=== PATIENT | male | born 2000 | race African-American/Black ===

== ENCOUNTER 2022-03-28 15:11 | Emergency (ER) | payer SELFPAY ==
--- OUTSIDE RECORDS SUMMARY | 2022-03-28 15:15 | XMS REPORT | Continuity of Care Document ---
:2000 Author Organization [facility] t Address [address] [place] [address] Care Team Providers Name Role Phone WALT DIAZ Attending Clinician Unavailable Problems This patient has no known problems. Allergies, Adverse Reactions, Alerts This patient has no known allergies or adverse reactions. Medications This patient has no known medications. Procedures This patient has no known procedures. Encounters Start End Encounter Admission Attending Care Care Encounter Source Date/Time Date/Time Type Type Clinicians Facility Department ID 2021-11-11 2021-11-11 Emergency E [facility] D[facility] [id number] 14:47:00 17:14:00 WALT Results This patient has no known results.
[2022-03-28 16:17] LABS: Urine Blood Negative (Negative); Urine Glucose Negative (Negative); Urine Protein 2+ (Negative); Urine Specific Gravity 1.025 (1.005-1.030)
[2022-03-28 16:31] LABS: Urine Bacteria <20 /HPF (<20); Urine Mucus 4+ /HPF (None Seen); Urine RBC 21-50 /HPF (None Seen)
[2022-03-28] MEDS ORDERED: AZITHROMYCIN 250 MG TAB ONE (16:35)
[2022-03-28] MEDS ORDERED: CEFTRIAXONE 250 MG/VIAL ONE (16:35)
--- NOTE | 2022-03-28 16:47 | ER ---
Nurse's Notes [facility] Name: Morgan Whipple Jr Age: 21 yrs Sex: Male : 2000 Arrival Date: 03/28/2022 Time: 15:16 Bed Treatment Private MD: Diagnosis: Unspecified sexually transmitted disease Presentation: 03/28 15:36 Chief complaint: Patient states: started having yellow discharge from penis yesterday jh5 and burning with urination. Coronavirus screen: Vaccine status: Patient reports being unvaccinated. Client denies travel out of the [place] in the last 14 days. Ebola Screen: Patient negative for fever greater than or equal to 101.5 degrees Fahrenheit, and additional compatible Ebola Virus Disease symptoms Patient denies exposure to infectious person. Patient denies travel to an Ebola-affected area in the 21 days before illness onset. Initial Sepsis Screen: Does the patient meet any 2 criteria? No. Patient's initial sepsis screen is negative. Does the patient have a suspected source of infection? No. Patient's initial sepsis screen is negative. Risk Assessment: Do you want to hurt yourself or someone else? Patient reports no desire to harm self or others. Onset of symptoms was March 27, 2022. 15:36 Method Of Arrival: Ambulatory [facility] 15:36 Acuity: DARY 3 jh5 Triage Assessment: 15:39 General: Appears in no apparent distress. uncomfortable, slender, well groomed, well jh5 developed, Behavior is calm, cooperative, appropriate for age, anxious. Pain: Denies pain. Historical: - Allergies: 15:39 No Known Allergies; 5 - Home Meds: 15:39 None [Active]; jh5 - PMHx: 15:39 None; jh5 - PSHx: 15:39 None; 5 - Immunization history:: Adult Immunizations up to date. - Social history:: Smoking status: Reported history of juuling and/or vaping. Screenin:07 Abuse screen: Denies threats or abuse. Nutritional screening: No deficits noted. em6 Tuberculosis screening: No symptoms or risk factors identified. Fall Risk Total Mahmood Fall Scale indicates No Risk (0-24 pts). Assessment: 15:50 General: Appears in no apparent distress. Behavior is cooperative. Pain: Denies pain. em6 Neuro: Level of Consciousness is awake, alert, obeys commands, Oriented to person, place, time, situation. Cardiovascular: Patient's skin is warm and dry. Respiratory: Airway is patent Respiratory effort is even, unlabored, Respiratory pattern is regular, symmetrical. GI: No signs and/or symptoms were reported involving the gastrointestinal system. : Reports burning with urination, discharge, white, urinary frequency. EENT: No signs and/or symptoms were reported regarding the EENT system. Derm: No signs and/or symptoms reported regarding the dermatologic system. Musculoskeletal: Circulation, motion, and sensation intact. Range of motion: intact in all extremities. 16:50 Reassessment: No changes from previously documented assessment. Patient and/or family em6 updated on plan of care and expected duration. Pain level reassessed. Patient is alert, oriented x 3, equal unlabored respirations, skin warm/dry/pink. Vital Signs: 15:36 BP 139 / 89; Pulse 113; Resp 16; Temp 98.8; Pulse Ox 100% ; Weight 85.28 kg; Height 5 [facility] ft. 11 in. (180.34 cm); Pain 0/10; 17:17 BP 132 / 84; Pulse 100; Resp 18; Pulse Ox 100% on R/A; em6 15:36 Body Mass Index 26.22 (85.28 kg, 180.34 cm) [facility] ED Course: 15:16 Patient arrived in ED. rg4 15:19 Magno Juarez PA is PHCP. cp 15:19 Waldo Tijerina MD is Attending Physician. cp 15:39 Triage completed. [facility] 15:39 Arm band placed on right wrist. [facility] 16:03 Breanne Granger, BRONWYN is Primary Nurse. em6 16:07 Call light in reach. em6 16:18 Urine Microscopic Only Sent. em6 16:18 Urine Culture Sent. em6 17:17 No provider procedures requiring assistance completed. Patient did not have IV access em6 during this emergency room visit. Administered Medications: 16:45 Drug: Zithromax (azithromycin) 1 grams Route: PO; em6 17:12 Follow up: Response: No adverse reaction em6 16:45 Drug: Rocephin (cefTRIAXone) 250 mg Route: IM; Site: right deltoid; em6 17:12 Follow up: Response: No adverse reaction em6 Medication: 17:18 VIS not applicable for this client. em6 Outcome: 16:46 Discharge ordered by . cp 17:17 Discharged to home ambulatory. em6 17:17 Condition: stable 17:17 Discharge instructions given to patient, Instructed on discharge instructions, follow up and referral plans. medication usage, Demonstrated understanding of instructions, follow-up care, medications, Prescriptions given X 1. 17:18 Patient left the ED. em6 Signatures: Magno Juarez PA PA cp Garcia, Rubi rg4 Kiki Santamaria RN RN 5 Breanne Granger RN RN em6 Corrections: (The following items were deleted from the chart) 18:40 15:50 GI: em6 em6
--- NOTE | 2022-03-28 16:47 | EDPHYS ---
Physician Documentation [facility] Name: Morgan Whipple Jr Age: 21 yrs Sex: Male : 2000 Arrival Date: 03/28/2022 Time: 15:16 Bed Treatment Private MD: ED Physician aWldo Tijerina HPI: 03/28 16:15 This 21 yrs old Black Male presents to ER via Ambulatory with complaints of Penile cp Discharge, Burning With Urination. 16:15 The patient presents with urinary symptoms, dysuria, penile discharge. Onset: The cp symptoms/episode began/occurred yesterday. Associated signs and symptoms: The patient has no apparent associated signs or symptoms. Patient reports being sexually active and c/o painful urination and yellow colored penile discharge since yesterday. Denies testicular pain, denies abdominal pain, denies rash. Historical: - Allergies: 15:39 No Known Allergies; [facility] - Home Meds: 15:39 None [Active]; [facility] - PMHx: 15:39 None; [facility] - PSHx: 15:39 None; [facility] - Immunization history:: Adult Immunizations up to date. - Social history:: Smoking status: Reported history of juuling and/or vaping. ROS: 16:20 Constitutional: Negative for body aches, chills, fever, poor PO intake. cp 16:20 Respiratory: Negative for cough, shortness of breath, wheezing. cp 16:20 Abdomen/GI: Negative for abdominal pain, nausea, vomiting, and diarrhea. 16:20 Back: Negative for pain at rest, pain with movement. 16:20 : Positive for burning with urination, penile discharge, Negative for hematuria, testicular pain 16:20 Skin: Negative for rash. 16:20 Neuro: Negative for altered mental status, weakness. 16:20 All other systems are negative. Exam: 16:23 Constitutional: The patient appears in no acute distress, alert, awake, comfortable, cp non-toxic, well developed, well nourished. 16:23 Head/Face: Normocephalic, atraumatic. cp 16:23 Eyes: Periorbital structures: appear normal, Conjunctiva: normal, no exudate, no injection, Sclera: no appreciated abnormality, Lids and lashes: appear normal, bilaterally. 16:23 ENT: External ear(s): are unremarkable, Nose: is normal, Posterior pharynx: Airway: no evidence of obstruction, patent. 16:23 Chest/axilla: Inspection: normal. 16:23 Cardiovascular: Rate: tachycardic, Rhythm: regular. 16:23 Respiratory: the patient does not display signs of respiratory distress, Respirations: normal, no use of accessory muscles, no retractions, labored breathing, is not present, Breath sounds: are clear throughout, no decreased breath sounds. 16:23 Abdomen/GI: Exam negative for discomfort, distension, guarding, Inspection: abdomen appears normal. 16:23 Skin: no rash present. Vital Signs: 15:36 BP 139 / 89; Pulse 113; Resp 16; Temp 98.8; Pulse Ox 100% ; Weight 85.28 kg; Height 5 jh5 ft. 11 in. (180.34 cm); Pain 0/10; 17:17 BP 132 / 84; Pulse 100; Resp 18; Pulse Ox 100% on R/A; em6 15:36 Body Mass Index 26.22 (85.28 kg, 180.34 cm) jh5 MDM: 15:58 Patient medically screened. cp 16:15 Differential diagnosis: UTI, prostatitis, urethritis, std. cp 16:45 Data reviewed: vital signs, nurses notes, lab test result(s), urinalysis, hematuria. cp 16:46 Counseling: I had a detailed discussion with the patient and/or guardian regarding: the cp historical points, exam findings, and any diagnostic results supporting the discharge/admit diagnosis, lab results, to return to the emergency department if symptoms worsen or persist or if there are any questions or concerns that arise at home. 03/28 16:07 Order name: Urine Culture cp 03/28 16:07 Order name: Urine Microscopic Only; Complete Time: 16:43 cp 03/28 16:44 Interpretation: Normal except: UWBC >50; URBC 21-50; MUCUS 4+; HYAL 5-10. cp 03/28 16:17 Order name: Urine Dipstick-Ancillary; Complete Time: 16:19 EDMS 03/28 16:44 Interpretation: Normal except: UKET 4+; UPROT 2+; UESTR Trace. cp 03/28 16:07 Order name: Urine Dipstick-Ancillary (obtain specimen); Complete Time: 16:18 cp Administered Medications: 16:45 Drug: Zithromax (azithromycin) 1 grams Route: PO; em6 17:12 Follow up: Response: No adverse reaction em6 16:45 Drug: Rocephin (cefTRIAXone) 250 mg Route: IM; Site: right deltoid; em6 17:12 Follow up: Response: No adverse reaction em6 Disposition Summary: 03/28/22 16:46 Discharge Ordered Location: Home cp Problem: new cp Symptoms: have improved cp Condition: Stable cp Diagnosis - Unspecified sexually transmitted disease cp Followup: cp - With: Private Physician - When: 2 - 3 days - Reason: Recheck today's complaints Discharge Instructions: - Discharge Summary Sheet cp - Chlamydia, Male cp - Gonorrhea cp - Preventing Sexually Transmitted Infections, Adult cp Forms: - Medication Reconciliation Form cp - Thank You Letter cp - Antibiotic Education cp - Prescription Opioid Use cp Prescriptions: - Doxycycline Hyclate 100 mg Oral Tablet - take 1 tablet by ORAL route every 12 hours; 20 tablet; Refills: 0, Product cp Selection Permitted Addendum: 04/01/2022 21:06 Co-signature as Attending Physician, Waldo Tijerina MD. r n Signatures: Dispatcher [employer] EDWaldo Leach MD MD rn Page, Corey, PA PA cp Kiki Santamaria, RN RN jh5 Breanne Granger RN RN em6
[2022-03-28 17:24] VITALS: TEMP 98.8; O2SAT 100
[2022-03-28 17:25] VITALS: BP 132/84
== END 2022-03-28 17:18 | disposition home or self-care (01) ==
LOC: ER 15:11
DX: A64 Unspecified sexually transmitted disease (principal); F17.290 Nicotine dependence, other tobacco product, uncomplicated
CPT/HCPCS: 81003; 81015; 87086; 87088; 96372; 99283; J0696